=== PATIENT | female | born 1950 | race Caucasian/White ===

== ENCOUNTER 2020-11-15 07:37 | Emergency (ER) | payer MEDICARE ==
[2020-11-15] MEDS ORDERED: Morphine 4 MG/ML Syringe IVPUSH ONE ×2 (07:59→09:29)
[2020-11-15] MEDS ORDERED: Sodium Chloride 0.9% 10 ML Syringe FLUSH PRN (07:59)
[2020-11-15] MEDS ORDERED: Sodium Chloride 0.9% 1,000 ML IV ONE (07:59)
[2020-11-15] MEDS ORDERED: Sodium Chloride 0.9% 2.5 ML Syringe FLUSH PRN (07:59)
--- NOTE | 2020-11-15 08:12 | EDM.PDOC ---
ED HPI GENERAL MEDICAL PROBLEM - General Chief Complaint: Abdominal Pain Stated Complaint: CHEST PAIN Time Seen by Provider: 11/15/20 07:39 Source of Information: Reports: Patient History Limitations: Reports: No Limitations - History of Present Illness INITIAL COMMENTS - FREE TEXT/NARRATIVE: 69F PMHx frequent UTIs, cholecystectomy presents for abdominal pain. Patient states that for last few days she has noted increased urinary frequency although denies dysuria. Woke up this morning with several symptoms. States she has diffuse abdominal pain "like a band wrapped around me" radiating to middle back. Pain radiates up central chest and is associated with SOB and difficulty "getting in a deep breath". No associated nausea or vomiting. No fevers. Generalized abdomninal Pain Score (Numeric/FACES): 7 - Related Data Allergies Allergy/AdvReac Type Severity Reaction Status Date / Time nitrofurantoin Allergy Vomiting Verified 11/15/20 07:41 Sulfa (Sulfonamide Allergy Rash Verified 11/15/20 07:41 Antibiotics) Home Meds: Home Meds . 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: Musculoskeletal History: Reports: Arthritis Other Musculoskeletal History: "arthritis to hands' Neurological History: Reports: Migraines Other Neuro History: migraines in the past Psychiatric History: Reports: Depression Other Psychiatric History: situational depression in the past Endocrine/Metabolic History: Reports: Obesity/BMI 30+ Hematologic History: Reports: None Immunologic History: Reports: None Oncologic (Cancer) History: Reports: None Dermatologic History: Reports: None Other Dermatologic History: hx of "jock itch", healed now - Infectious Disease History Infectious Disease History: Reports: Chicken Pox, Measles - Past Surgical History Head Surgeries/Procedures: Reports: None HEENT Surgical History: Reports: Cataract Surgery, Tonsillectomy Cardiovascular Surgical History: Reports: None Respiratory Surgical History: Reports: None GI Surgical History: Reports: Cholecystectomy, Colonoscopy, EGD Female Surgical History: Reports: Tubal Ligation Endocrine Surgical History: Reports: None Neurological Surgical History: Reports: None Other Musculoskeletal Surgeries/Procedures:: Bilateral bunionectomies Oncologic Surgical History: Reports: None Dermatological Surgical History: Reports: Plastic Surgical Reconstruction/Repair Social & Family History - Family History Family Medical History: No Pertinent Family History - Tobacco Use Tobacco Use Status *Q: Never Tobacco User - Caffeine Use Caffeine Use: Reports: Soda Caffeine Use Comment: rarely - Recreational Drug Use Recreational Drug Use: No ED ROS GENERAL - Review of Systems Review Of Systems: Comprehensive ROS is negative, except as noted in HPI. ED EXAM, GENERAL - Physical Exam Exam: See Below Exam Limited By: No Limitations General Appearance: Alert, WD/WN, No Apparent Distress Throat/Mouth: Normal Voice, No Airway Compromise Head: Atraumatic, Normocephalic Neck: Normal Inspection Respiratory/Chest: No Respiratory Distress, Lungs Clear, Normal Breath Sounds, No Accessory Muscle Use, Other (shallow breathing) Cardiovascular: Normal Peripheral Pulses, Regular Rate, Rhythm, No Edema GI/Abdominal: Soft, Non-Tender Back Exam: No: CVA Tenderness (L), CVA Tenderness (R) Neurological: Alert Psychiatric: Normal Affect, Normal Mood Skin Exam: Warm, Dry, Intact, Normal Color #1 Interpretation EKG Date: 11/15/20 Time: 08:18 Rhythm: NSR Rate (Beats/Min): 65 [place]: Normal P-Wave: Present QRS: Normal ST-T: Normal QT: Normal TX/PQ Interval: 156 Comparison: NA - No Prior EKG EKG Interpretation Comments: no ischemic changes identified Course - Vital Signs Last Recorded V/S: Last Vital Signs Temp 98.2 F 11/15/20 14:45 Pulse 70 11/15/20 14:45 Resp 18 11/15/20 14:45 BP 120/82 11/15/20 14:45 Pulse Ox 96 11/15/20 14:45 - Orders/Labs/Meds Orders: Active Orders 24 hr Category Date Time Status Saline Lock Insert [OM.PC] Stat Oth 11/15/20 07:59 Ordered Labs: Laboratory Tests 11/15/20 11/15/20 11/15/20 Range/Units 07:35 07:35 07:35 WBC 6.50 (4.0-11.0) K/uL RBC 4.44 (4.30-5.90) M/uL Hgb 14.0 (12.0-16.0) g/dL Hct 41.9 (36.0-46.0) % MCV 94.4 (80.0-98.0) fL MCH 31.5 (27.0-32.0) pg MCHC 33.4 (31.0-37.0) g/dL RDW Std Deviation 43.5 (28.0-62.0) fl RDW Coeff of Seema 13 (11.0-15.0) % Plt Count 237 (150-400) K/uL MPV 8.90 (7.40-12.00) fL Neut % (Auto) 42.6 L (48.0-80.0) % Lymph % (Auto) 49.4 H (16.0-40.0) % [place] % (Auto) 5.8 (0.0-15.0) % Eos % (Auto) 2.0 (0.0-7.0) % Baso % (Auto) 0.2 (0.0-1.5) % Neut # (Auto) 2.8 (1.4-5.7) K/uL Lymph # (Auto) 3.2 H (0.6-2.4) K/uL [place] # (Auto) 0.4 (0.0-0.8) K/uL Eos # (Auto) 0.1 (0.0-0.7) K/uL Baso # (Auto) 0.0 (0.0-0.1) K/uL Nucleated RBC % 0.0 /100WBC Nucleated RBCs # 0 K/uL D-Dimer, Quantitative (0.0-0.50) mg/L FEU Lactate 1.7 (0.20-2.00) mmol/L Sodium 142 (136-145) mmol/L Potassium 4.0 (3.5-5.1) mmol/L Chloride 105 (98-107) mmol/L Carbon Dioxide 26.7 (21.0-32.0) mmol/L BUN 20 H (7.0-18.0) mg/dL Creatinine 1.2 H (0.6-1.0) mg/dL Est Cr Clr Drug Dosing 41.81 mL/min Estimated GFR (MDRD) 44.3 ml/min Glucose 103 (74-106) mg/dL Calcium 9.1 (8.5-10.1) mg/dL Total Bilirubin 0.5 (0.2-1.0) mg/dL AST 41 H (15-37) IU/L ALT 39 (14-63) IU/L Alkaline Phosphatase 65 (46-116) U/L Troponin I < 0.050 (0.000-0.056) ng/mL Total Protein 7.3 (6.4-8.2) g/dL Albumin 3.9 (3.4-5.0) g/dL Globulin 3.4 (2.6-4.0) g/dL Albumin/Globulin Ratio 1.1 (0.9-1.6) Lipase 154 (73-393) U/L Urine Color Urine Appearance Urine pH (5.0-8.0) Ur Specific [place] (1.001-1.035) Urine Protein (NEGATIVE) mg/dL Urine Glucose (UA) (NEGATIVE) mg/dL Urine Ketones (NEGATIVE) mg/dL Urine Occult Blood (NEGATIVE) Urine Nitrite (NEGATIVE) Urine Bilirubin (NEGATIVE) Urine Urobilinogen (<2.0) EU/dL Ur Leukocyte Esterase (NEGATIVE) Urine RBC (0-2/HPF) Urine WBC (0-5/HPF) Ur Epithelial Cells (NONE-FEW) Urine Bacteria (NEGATIVE) 11/15/20 11/15/20 Range/Units 07:35 07:40 WBC (4.0-11.0) K/uL RBC (4.30-5.90) M/uL Hgb (12.0-16.0) g/dL Hct (36.0-46.0) % MCV (80.0-98.0) fL MCH (27.0-32.0) pg MCHC (31.0-37.0) g/dL RDW Std Deviation (28.0-62.0) fl RDW Coeff of Seema (11.0-15.0) % Plt Count (150-400) K/uL MPV (7.40-12.00) fL Neut % (Auto) (48.0-80.0) % Lymph % (Auto) (16.0-40.0) % [place] % (Auto) (0.0-15.0) % Eos % (Auto) (0.0-7.0) % Baso % (Auto) (0.0-1.5) % Neut # (Auto) (1.4-5.7) K/uL Lymph # (Auto) (0.6-2.4) K/uL [place] # (Auto) (0.0-0.8) K/uL Eos # (Auto) (0.0-0.7) K/uL Baso # (Auto) (0.0-0.1) K/uL Nucleated RBC % /100WBC Nucleated RBCs # K/uL D-Dimer, Quantitative 0.54 H (0.0-0.50) mg/L FEU Lactate (0.20-2.00) mmol/L Sodium (136-145) mmol/L Potassium (3.5-5.1) mmol/L Chloride (98-107) mmol/L Carbon Dioxide (21.0-32.0) mmol/L BUN (7.0-18.0) mg/dL Creatinine (0.6-1.0) mg/dL Est Cr Clr Drug Dosing mL/min Estimated GFR (MDRD) ml/min Glucose (74-106) mg/dL Calcium (8.5-10.1) mg/dL Total Bilirubin (0.2-1.0) mg/dL AST (15-37) IU/L ALT (14-63) IU/L Alkaline Phosphatase (46-116) U/L Troponin I (0.000-0.056) ng/mL Total Protein (6.4-8.2) g/dL Albumin (3.4-5.0) g/dL Globulin (2.6-4.0) g/dL Albumin/Globulin Ratio (0.9-1.6) Lipase (73-393) U/L Urine Color YELLOW Urine Appearance SLT CLOUDY Urine pH 5.5 (5.0-8.0) Ur Specific [place] 1.020 (1.001-1.035) Urine Protein NEGATIVE (NEGATIVE) mg/dL Urine Glucose (UA) NEGATIVE (NEGATIVE) mg/dL Urine Ketones NEGATIVE (NEGATIVE) mg/dL Urine Occult Blood NEGATIVE (NEGATIVE) Urine Nitrite NEGATIVE (NEGATIVE) Urine Bilirubin NEGATIVE (NEGATIVE) Urine Urobilinogen 0.2 (<2.0) EU/dL Ur Leukocyte Esterase TRACE H (NEGATIVE) Urine RBC 0-1 (0-2/HPF) Urine WBC 0-2 (0-5/HPF) Ur Epithelial Cells FEW (NONE-FEW) Urine Bacteria RARE (NEGATIVE) Meds: Medications Discontinued Medications Generic Name Dose Route Start Last Admin Trade Name Freq PRN Reason Stop Dose Admin Diphenhydramine HCl 25 mg 11/15/20 12:45 11/15/20 12:54 Benadryl IVPUSH 11/15/20 12:46 25 mg ONETIME ONE Administration Hydromorphone HCl 1 mg 11/15/20 12:44 11/15/20 12:53 Dilaudid IVPUSH 11/15/20 12:45 1 mg ONETIME ONE Administration Sodium Chloride 1,000 mls @ 999 mls/hr 11/15/20 07:59 11/15/20 08:07 Normal Saline IV 11/15/20 08:59 999 mls/hr .Bolus ONE Administration Iopamidol 100 ml 11/15/20 10:13 11/15/20 11:47 Isovue Multipack-370 (76%) IVPUSH 11/15/20 10:14 100 ml ONETIME STA Administration Metoclopramide HCl 10 mg 11/15/20 12:44 11/15/20 12:54 Reglan IVPUSH 11/15/20 12:45 10 mg ONETIME ONE Administration Morphine Sulfate 4 mg 11/15/20 07:59 11/15/20 08:06 Morphine IVPUSH 11/15/20 08:00 4 mg ONETIME ONE Administration Morphine Sulfate 4 mg 11/15/20 09:29 11/15/20 09:36 Morphine IVPUSH 11/15/20 09:30 4 mg ONETIME ONE Administration Ondansetron HCl 4 mg 11/15/20 10:03 11/15/20 10:09 Zofran IVPUSH 11/15/20 10:04 4 mg ONETIME ONE Administration Sodium Chloride 10 ml 11/15/20 07:59 11/15/20 08:07 Saline Flush FLUSH 10 ml ASDIRECTED PRN Administration Keep Vein Open Sodium Chloride 2.5 ml 11/15/20 07:59 11/15/20 08:07 Saline Flush FLUSH 2.5 ml ASDIRECTED PRN Administration Keep Vein Open - Re-Assessments/Exams Free Text/Narrative Re-Assessment/Exam: 11/15/20 08:11 Will treat pain symptomatically; will start broad workup for non-specific symptoms. 11/15/20 08:51 Labs are grossly unremarkable which is reassuring; Patient's pain substantially improved even prior to analgesia. Will get CT A/P to r/o emergent pathology considering patient's advanced age and surgical history. 11/15/20 09:18 Age adjusted D-dimer is negative; will f/u CT A/P and reassess 11/15/20 11:31 Patient's pain is not improved. She is requesting Dr. Bull for general surgery consult is Dr. Bull has seen her in the past. He is not on-call today but he has been paged. If no response I will page the surgeon campaign consultant for dispo recommendations. 11/15/20 12:[address] Bull who thinks patient would benefit from ERCP which not available at this facility. Spoke with [facility] as this is where patient has had prior surgical procedures. Spoke with Dr. Caden ROSAS who notes that without transaminitis patient likely does not have choledocholithiasis and does not recommend emergent ERCP. Spoke with hospitalist at [facility] Dr. Marino who notes that without GI consult on board there is not much else that she would offer that we cannot offer at this institution. She states if we cannot find acceptance anywhere else to please call her back, but she notes that [facility] is very busy right now without any available beds. Spoke with hospitalist here Dr. Adames who also notes that the sound like a surgical case and she would be uncomfortable excepting the patient without general surgery or GI coverage. Will reach out to [facility] for possible transfer of care. 11/15/20 12:[address] Ramirez at [facility] who notes their facility does not have ERCP available so recommends transfer to a different institution. Departure - Departure Time of Disposition: 14:00 Disposition: DC/Tfer to Acute Hospital 02 Condition: Good Clinical Impression: Choledocholithiasis - Discharge Information Referrals: PCP,None [Primary Care Provider] - Forms: ED Department Discharge Sepsis Event Note (ED) - Evaluation Sepsis Screening Result: No Definite Risk - My Orders Last 24 Hours: My Active Orders 11/15/20 07:59 Saline Lock Insert [OM.PC] Stat - Assessment/Plan Last 24 Hours: My Active Orders 11/15/20 07:59 Saline Lock Insert [OM.PC] Stat
[2020-11-15 08:33] LABS: BLOOD UREA NITROGEN,BUN 20 mg/dL (7.0-18.0); CARBON DIOXIDE,CO2 26.7 mmol/L (21.0-32.0); CHLORIDE,CL 105 mmol/L (98-107); GLUCOSE RANDOM 103 mg/dL (74-106); LIPASE 154 U/L (73-393); SODIUM,NA 142 mmol/L (136-145)
--- NOTE | 2020-11-15 08:49 | CR ---
INDICATION: Chest pain and burning TECHNIQUE: Chest 1 views COMPARISON: July 17, 2018 FINDINGS: Cardiovascular and mediastinum: Heart size and vasculature are normal in caliber and appearance. Lungs and pleural spaces: Lungs are clear. No sign of infiltrate or mass. No sign of pleural effusion. No pneumothorax. Bones and soft tissues: No significant findings. IMPRESSION: No acute findings and no significant changes from the prior exam. Dictated by Yves Villafana MD @ Nov 15 2020 8:47AM Signed by Dr. Yves Villafana @ Nov 15 2020 8:48AM
[2020-11-15] MEDS ORDERED: Ondansetron 4 MG/2 ML SDV IVPUSH ONE (10:03)
[2020-11-15] MEDS ORDERED: Iopamidol 755 MG/ML 500 ML Multipack Bottle IVPUSH STA (10:13)
--- NOTE | 2020-11-15 11:03 | CT ---
INDICATION: Abdominal pain with nausea and vomiting. TECHNIQUE: CT abdomen and pelvis acquired with 100 cc Isovue 370 IV contrast. COMPARISON: July 18, 2018. FINDINGS: Lower chest: Unremarkable. Liver: Unremarkable. Normal in size and attenuation. No masses. Gallbladder and bile ducts: Status post cholecystectomy with mild secondary biliary dilatation. There are new densities within the common bile duct visualized on the axial series 201, image 56 and in the distal duct on image 72. Pancreas: Unremarkable. No mass or inflammation. Spleen: Unremarkable. Normal in size. No masses. Adrenal glands: Unremarkable. No nodules. Kidneys: Unremarkable. No masses, stones, or hydronephrosis. GI tract: Distal colonic diverticulosis. GI tract otherwise normal in caliber and appearance. Normal appendix. Vasculature: Unremarkable. Mesenteric arteries are patent. Lymph nodes: No lymphadenopathy. Omentum/Peritoneum/Abdominal Wall: Unremarkable. No sign of mass or infiltration. No free air or significant free fluid. Pelvis: Unremarkable. Bones: Unremarkable for age. IMPRESSION: 1. Densities within the common bile duct are new since the prior exam. This could represent choledocholithiasis or migrated surgical alida from a cholecystectomy. No significant biliary dilatation or inflammation in this area. 2. Distal colonic diverticulosis without acute inflammation. Otherwise unremarkable GI tract. 3. No other acute or specific finding to explain abdominal pain, nausea or vomiting. Please note that all CT scans at this facility use dose modulation, iterative reconstruction, and/or weight-based dosing when appropriate to reduce radiation dose to as low as reasonably achievable. Dictated by Yves Villafana MD @ Nov 15 2020 10:52AM Signed by Dr. Yves Villafana @ Nov 15 2020 11:01AM
[2020-11-15] MEDS ORDERED: Metoclopramide 10 MG/2 ML SDV IVPUSH ONE (12:44)
[2020-11-15] MEDS ORDERED: HYDROmorphone 2 MG/ML Syringe IVPUSH ONE (12:44)
[2020-11-15] MEDS ORDERED: diphenhydrAMINE 50 MG/ML SDV IVPUSH ONE (12:45)
[2020-11-15 14:50] VITALS: BP 120/82; PULSE 70
== END 2020-11-15 14:45 ==
LOC: MW.ED 07:37
DX: K80.50 Calculus of bile duct without cholangitis or cholecystitis without obstruction (principal); E66.9 Obesity, unspecified; Z68.31 Body mass index [BMI] 31.0-31.9, adult; Z88.1 Allergy status to other antibiotic agents; Z88.2 Allergy status to sulfonamides
CPT/HCPCS: 36415; 71045; 74177; 80053; 81001; 83605; 83690; 84484; 85025; 85379; 93005; 96374; 96375; 96376; 99285; J1170; J1200; J2270; J2405; J2765; J7030; Q9967; 93010; 99284

== ENCOUNTER 2022-05-15 16:45 | Emergency (ER) | payer MEDICARE ==
[2022-05-15 19:02] VITALS: BP 110/71; PULSE 79
== END 2022-05-15 19:35 | disposition home or self-care (01) ==
LOC: MW.ED 16:45
DX: N93.9 Abnormal uterine and vaginal bleeding, unspecified (principal); N95.0 Postmenopausal bleeding; Z88.2 Allergy status to sulfonamides; Z88.8 Allergy status to other drugs, medicaments and biological substances; Z79.899 Other long term (current) drug therapy
CPT/HCPCS: 36415; 81001; 85025; 87086; 99283; 99284

== ENCOUNTER 2022-10-13 16:44 | Emergency (ER) | payer MEDICARE ==
[2022-10-13] MEDS ORDERED: Ondansetron 4 MG/2 ML SDV IVPUSH STA (17:28)
[2022-10-13] MEDS ORDERED: Sodium Chloride 0.9% 1,000 ML IV STA (17:28)
[2022-10-13 17:54] LABS: CARBON DIOXIDE,CO2 26.5 mmol/L (21.0-32.0); POTASSIUM,K 3.4 mmol/L (3.5-5.1)
[2022-10-13 18:36] LABS: CORONAVIRUS COVID-19 NAA NEGATIVE (NEGATIVE); INFLUENZA A NAA POSITIVE (NEGATIVE); INFLUENZA B NAA NEGATIVE (NEGATIVE)
[2022-10-13] MEDS ORDERED: Potassium Chloride 20 MEQ Tab.ER PO STA (18:39)
[2022-10-13] MEDS ORDERED: Acetaminophen 500 MG Tab PO STA (18:47)
[2022-10-13] MEDS ORDERED: Sodium Chloride 0.9% 500 ML IV STA (18:47)
[2022-10-13] MEDS ORDERED: Iopamidol 755 MG/ML 500 ML Multipack Bottle IVPUSH ONE (19:02)
[2022-10-13] MEDS ORDERED: Promethazine 25 MG Tab PO STA (20:05)
[2022-10-13 21:42] VITALS: BP 123/73; PULSE 61
== END 2022-10-13 21:39 | disposition home or self-care (01) ==
LOC: MW.ED 16:44
DX: K57.30 Diverticulosis of large intestine without perforation or abscess without bleeding (principal); J10.1 Influenza due to other identified influenza virus with other respiratory manifestations; E87.6 Hypokalemia; R19.7 Diarrhea, unspecified; M19.90 Unspecified osteoarthritis, unspecified site; E66.9 Obesity, unspecified; Z68.29 Body mass index [BMI] 29.0-29.9, adult; Z88.1 Allergy status to other antibiotic agents; Z88.2 Allergy status to sulfonamides; Z20.822 Contact with and (suspected) exposure to COVID-19
CPT/HCPCS: 0240U; 36415; 74177; 80053; 81001; 83690; 83735; 85025; 87045; 87046; 87449; 87899; 93005; 96361; 96374; 99284; A9270; J2405; J7030; J7040; Q9967